=== PATIENT | female | born 1975 | race Caucasian/White ===

== ENCOUNTER → 2016-11-03 | Outpatient (CLI) | payer OTHER ==
[~2016-11-03] MED LIST: ADCIRCA20 MG PO; AMBIEN PO; CIPRO PO; COUMADIN5 MG PO; COUMADIN7.5 MG PO; DITROPAN PO; DITROPAN5 MG PO; DOXYCYCLINE HY100 M1 PO; FERRO-TIME325 MG PO; FIORICET PO; HYDROCODON-ACE1 EAC7 PO; KCL PO; LETAIRIS5 MG PO; LOMOTIL TABLET1 TAB PO; MEDROL PO; NEXIUM PO; OXYGEN AT; PHENERGAN PO; PHENERGAN25 MG PO; PROTONIX PO; TRACLEER; TRAMADOL HCL50 M1 PO; TYVASO1.74 MG/2. IH; ULTRAM PO; VIBRAMYCIN100 M1 PO; VICODIN 5/1 TAB 5/50 PO; VICODIN PO; WELCHOL625 MG PO; WELLBUTRIN PO; ZANAFLEX; ZANAFLEX4 M1 PO; ZOLOFT PO; [UNRECOGNIZED DRUG - OTHER]; [UNRECOGNIZED DRUG - OTHER] PO
--- NOTE | ~2016-11-03 | MR113 ---
[facility] A Service of [facility] & [facility] RADIOLOGY TEXT RESULTS PATIENT: ANA PAULA BOB LOCATION: [facility] : 77 UNIT #: [id number] AGE: [address]: ARISTEO CORTEZ MD (INT [facility]) SEX: F ORDER DR: [id number] [address] [address] [id number] O MR#: [id number] Acc #: [id number] NAME: ANA PAULA BOB : 1975 SEX: F STUDY DATE/TIME: 11/03/2016 12:08 UNIT: [facility] ROOM: STUDY DESCRIPTION: MR Lumbar Wo Contrast Attending Physician: Aristeo Cortez M.D. Referring Physician: Aristeo Cortez M.D. Ordering Physician: Aristeo Cortez M.D. Primary Care Physician: Aristeo Cortez M.D. MRI CENTER REPORT This report is preliminary unless electronic signature is present. EXAM Lumbar spine MRI no contrast DATE OF STUDY 11/03/[address] lumbar spine dated 03/30/2015 PROCEDURE Routine lumbar spine MRI without contrast CLINICAL HISTORY Low back pain for 10 years radiating to both lower extremities, left greater than right. FINDINGS Alignments normal except for slight 5-1 anterolisthesis unchanged since the prior study. There is no pars defect. The bone marrow signal is within normal limits and the distal cord and conus are normal in position and appearance. The paraspinous soft tissues are normal. At 1-2, 2-3, 3-4 and 4-5, there is no substantial canal or foraminal narrowing though there is some facet arthropathy at 4-5 bilaterally. At 5-1, there is no canal narrowing despite mild anterolisthesis, discogenic change and facet arthropathy. There is mild left and [id number] right mostly far lateral foraminal compromise. IMPRESSION Degenerative 5-1 anterolisthesis, no pars defect, right greater than left 5-1 foraminal compromise, overall no significant interval change suggested since CT lumbar spine of 03/20/2015. No acute abnormality. STS. [facility] A Service of [facility] & [facility] RADIOLOGY TEXT RESULTS PATIENT: ANA PAULA BOB LOCATION: [facility] : 77 UNIT #: [id number] AGE: [address]: ARISTEO CORTEZ MD ([facility]) SEX: F ORDER DR: Dictated by... Ronni Anaya M.D. THIS IS AN ELECTRONICALLY VERIFIED REPORT Ronni Anaya M.D. at 11/05/2016 9:42 AM TEV/to TD: 11/03/2016 17:31 JOB #: [id number] MRI CENTER REPORT Page 1 of 1
== END | disposition home or self-care (01) ==
LOC: SMRI 11:18
DX: M54.16 Radiculopathy, lumbar region (principal); M43.16 Spondylolisthesis, lumbar region
CPT/HCPCS: 72148

== ENCOUNTER → 2016-11-19 | Outpatient (CLI) | payer OTHER | END | disposition home or self-care (01) | LOC: CLAB 13:32 | DX: I27.2 Other secondary pulmonary hypertension (principal); Z92.29 Personal history of other drug therapy | CPT/HCPCS: 84703 ==

== ENCOUNTER 2016-11-27 00:23 | Emergency (ER) | payer OTHER ==
--- NOTE | ~2016-11-27 | CT2 ---
[facility] A Service of [facility] & [facility] RADIOLOGY TEXT RESULTS PATIENT: ANA PAULA BOB LOCATION: [facility] : 77 UNIT #: [id number] AGE: [address]: Brittaney Villa APRN SEX: F ORDER DR: [id number] [facility] [address] [place], [place] [address] [id number] E MR#: [id number] Acc #: [id number] NAME: ANA PAULA BOB : 1975 SEX: F STUDY DATE/TIME: 11/27/2016 04:39 UNIT: [facility] ROOM: STUDY DESCRIPTION: CT Abd and Pelv W Cont Attending Physician: Brittaney Villa A.P.R.N. Ordering Physician: Brittaney Villa A.P.R.N. Primary Care Physician: See Cortez M.D. MEDICAL IMAGING REPORT This report is preliminary unless electronic signature is present EXAM Abdomen and pelvis CT 11/27 04:39 INDICATIONS Diarrhea, nausea, acid reflux and stomach cramping and pain for the last 2 days. TECHNIQUE Axial images were obtained through the abdomen and pelvis following IV contrast administration. Multiplanar reformats were obtained. Comparison made with 05/07/2011. This CT exam was performed with one or more of the following radiation dose reduction techniques: automatic exposure control, adjustment of mA and/or kV according to patient size, and iterative reconstruction. FINDINGS Abdomen: There is some septal thickening with patchy ground-glass opacity in the lung bases. This could reflect edema in the appropriate clinical setting. The gallbladder is surgically absent. There is no biliary obstruction. There are right-side renal cysts which are larger than on the old exam. The solid organs are otherwise normal. No free fluid or adenopathy is seen. The GI tract is normal. Pelvis: The appendix is normal. There is abnormal wall thickening and fat stranding involving the cecum and proximal ascending colon compatible with colitis. The remainder of the GI tract is normal. IUD is present within the uterus. Again seen is a large fluid-filled tubular structure in the left adnexa which is essentially stable. This presumably reflects a large hydrosalpinx. Solid pelvic organs are otherwise unremarkable. Urinary bladder is decompressed but grossly normal. IMPRESSION [facility]. [facility] A Service of [facility] RADIOLOGY TEXT RESULTS PATIENT: ANA PAULA BOB LOCATION: [facility] : 77 UNIT #: [id number] AGE: [address]: Brittaney Villa APRN SEX: F ORDER DR: 1. Abnormal wall thickening with adjacent fat stranding involving the cecum and proximal ascending colon compatible with colitis. The remainder of the GI tract, including the appendix, is normal. 2. Stable appearance since 2010 of a tubular structure in the left adnexa which likely reflects a large hydrosalpinx. IUD appears grossly well positioned in the uterus. 3. Cholecystectomy. 4. Patchy ground-glass opacity with some mild septal thickening in the lung bases which could reflect early edema. Correlate clinically. Dictated by... Fredy Cleaning Jr., M.D. THIS IS AN ELECTRONICALLY VERIFIED REPORT Fredy Cleaning Jr., M.D. at 11/27/2016 10:14 PM YADIRA/yousuf TD: 11/27/2016 06:53 JOB #: [id number] MEDICAL IMAGING REPORT Page 1 of 1 COPY
[2016-11-27 01:52] LABS: BASOPHIL# 0.1 X10e3 (0-0.3); BASOPHIL% 1.2 % (0-2.5); EOSINOPHIL# 0.2 X10e3 (0-0.7); EOSINOPHIL% 2.9 % (0.0-7.0); HEMATOCRIT 34.2 % (35.0-45.0); HEMOGLOBIN 11.6 gm/dL (12.0-16.0); LYMPHOCYTE# 1.7 X10e3 (1.0-3.5); LYMPHOCYTE% 28.4 % (17.0-45.0); MEAN CELL VOLUME 87.7 FL (83-96); MEAN CORPUSCULAR HEMOGLOBIN 29.9 PG (28-34); MEAN CORPUSCULAR HGB CONC 34.1 g/dL (30-36); MONOCYTE# 0.3 X10e3 (0-1.0); MONOCYTE% 5.9 % (3.0-12.0); NEUTROPHIL# 3.6 X10e3 (1.5-7.1); NEUTROPHIL% 61.6 % (40-75); PLATELET COUNT 170 X10e3 (140-420); RED BLOOD COUNT 3.89 X10e (3.90-5.30); RED CELL DISTRIBUTION WIDTH 12.9 % (11.0-15.5); WHITE BLOOD COUNT 5.9 X10e3 (4.0-10.5)
[2016-11-27 01:53] LABS: DIFF IND NO
[2016-11-27 02:23] LABS: ALBUMIN SERUM 4.3 g/dL (3.5-5.0); BILIRUBIN, DIRECT 0.1 mg/dL (0.0-0.2); BILIRUBIN,INDIRECT 0.6 mg/dL (0.0-0.9); BILIRUBIN,TOTAL 0.7 mg/dL (0.2-2.0); BUN/CREATININE RATIO 17.14; CALCIUM SERUM 8.6 mg/dL (8.4-10.2); CREATININE SERUM 0.7 mg/dL (0.6-1.4); GLOM FILT RATE Estimated 108.4 mL/min (>60); POTASSIUM 3.3 mmol/L (3.5-5.1); PROTEIN TOTAL SERUM 7.4 g/dL (6.0-8.3)
[2016-11-27 03:05] LABS: URINE SOURCE CLEAN CATCH
[2016-11-27 03:10] LABS: URINE APPEARANCE CLEAR; URINE BILIRUBIN NEG (NEG); URINE BLOOD NEG (NEG); URINE COLOR YELLOW; URINE GLUCOSE NEG (NEG); URINE KETONE NEG (NEG); URINE LEUKOCYTE ESTERASE NEG (NEG); URINE NITRATE NEG (NEG); URINE PH 6.5 (5-8); URINE PROTEIN NEG (NEG); URINE SPECIFIC GRAVITY 1.013 (1.003-1.035); URINE UROBILINOGEN 0.2 MG/DL (NEG)
[2016-11-27 03:15] LABS: CULTURE INDICATED? NO
== END 2016-11-27 05:43 | disposition home or self-care (01) ==
LOC: CED 00:23
PROVIDERS: Emergency Medicine
DX: K52.9 Noninfective gastroenteritis and colitis, unspecified (principal); K21.9 Gastro-esophageal reflux disease without esophagitis; Z88.0 Allergy status to penicillin; Z90.49 Acquired absence of other specified parts of digestive tract
CPT/HCPCS: 36415; 74177; 80048; 80076; 81003; 82150; 83690; 84703; 85025; 96361; 96374; 96375; 99284; C9113; J2405; Q9967